=== PATIENT | male | born 1960 | race Caucasian/White ===

== ENCOUNTER 2017-12-15 17:09 | Observation (INO) | payer MEDICAID, SELFPAY ==
[2017-12-15] VITALS (8 sets, daily range): BP systolic 132–151; BP diastolic 80–100; PULSE 88–105; RESP 20–25; TEMP 37–38.1; O2SAT 93–95; BMI 34.4; BMI 34.5; BMI 34.6
--- NOTE | 2017-12-15 17:50 | EKG12_ITS ---
Test Reason : SOB Blood Pressure : / mmHG Vent. Rate : 098 BPM Atrial Rate : 098 BPM P-R Int : 164 ms QRS Dur : 090 ms QT Int : 330 ms P-R-T Axes : 030 009 021 degrees QTc Int : 421 ms Normal sinus rhythm Inferior infarct , age undetermined, cannot be excluded Abnormal ECG Confirmed by LITA BROOKS, HUMBLE ([id number]), newspaper or periodical editor ANITA ABREU ([id number]) on 12/17/2017 10:15:53 AM Referred By: ERIN/ABENA Confirmed By:HUMBLE LONDON MD
--- NOTE | 2017-12-15 17:50 | CT_ITS ---
STUDY: CTA CHEST REASON FOR EXAM: Male, 57 years old. Chest pain RADIATION DOSAGE (If Supplied By Facility): CTDIvol = ( 16.43 ) mGy, DLP = ( 663.14 ) mGycm TECHNIQUE: The examination was performed with the intravenous administration of 100ML ml of Isovue 370 contrast material. Post-processing of the angiographic images was performed, with multiplanar reformation and 3D reconstruction. Individualized dose optimization techniques were used for this CT. COMPARISON: January 20, 2015 FINDINGS: There is grossly stable bibasilar atelectasis and/or scarring. Normal enhancement of the main pulmonary artery and right and left pulmonary arteries. There are filling defects within subsegmental pulmonary arteries within the right lower lobe consistent with underlying emboli. Normal thoracic aorta and visualized great vessels. There is no demonstrated aortic dissection. There are calcifications of the coronary arteries. Normal mediastinum. Normal hilar regions. Normal visualized trachea and bronchi. Normal chest wall structures. There are degenerative changes of thoracic spine. There are stable scattered low-attenuation foci within the liver that likely reflect underlying hemangiomas or cysts. CT/CTA Chest W/WO Contrast IMPRESSION: Pulmonary emboli within subsegmental pulmonary arteries within the right lower lobe. Atherosclerosis. N.B. : The above information has been verbally conveyed by Tamara Swanson MD to Jeanna Pichardo, Covering Physician, on 12/15/2017 20:27:29 (ET). Electronically Signed: Tamara Swanson MD at 20:27 EDT Tel , Service support ,
--- NOTE | 2017-12-15 18:05 | RAD_ITS ---
STUDY: X-RAY CHEST REASON FOR EXAM: Male, 57 years old. Shortness of breath TECHNIQUE: Single frontal view of the chest. COMPARISON: January 20, 2015 FINDINGS: There are low lung volumes. There is no new focal consolidation. Normal size heart. Normal mediastinum and marcelina. Normal visualized pulmonary arteries. Normal visualized aortic arch and descending thoracic aorta. There are diffuse degenerative changes of the visualized thoracic spine. Normal visualized ribs, clavicles, and shoulders. There is no demonstrated abnormality of the visualized soft tissue structures of the upper abdomen. RAD/Chest 1 View (Portable) IMPRESSION: No acute cardiopulmonary process. Electronically Signed: Tamara Swanson MD at 19:13 EDT Tel , Service support ,
[2017-12-15] MEDS: Ketorolac 30 MG/ML Syringe IV (18:31)
[2017-12-15] MEDS: 0.9% Normal Saline 1,000 ML 150 ML IV (18:31)
[2017-12-15] MEDS: Ondansetron 4 MG/2 ML Vial IV (18:31)
[2017-12-15 18:56] LABS: Absolute Lymphocyte Count 1.39 X10^3/ul (0.83-4.51); Absolute Neutrophil Count 6.3 X10^3/uL (2.0-7.7); Basophil# 0.05 X10^3/uL; Basophil% 0.6 % (0-1); Eosinophil# 0.15 X10^3/uL; Eosinophils% 1.7 % (0-5); Hematocrit 48.2 % (40-54); Hemoglobin 16.4 g/dl (13.0-16.5); Lymphocyte # 1.39 X10^3/ul (4.0); Lymphocyte % 15.3 % (19-41); Mean Corpuscular Hgb 29.9 pg (27.0-32.0); Mean Platelet Vol. 10.1 fl (6.2-12.0); Monocyte# 1.14 X10^3/uL; Monocyte% 12.6 % (0-10); Neutrophil % 69.4 % (47-70); POSITIVE COUNT NO; POSITIVE DIFFERENTIAL NO; POSITIVE MORPHOLOGY NO; Platelet Count 319 K/mm3 (150-450); RBC Distribution Width SD 41.9 fl (35.1-43.9); Red Blood Count 5.48 M/mm3 (4.6-6.2); White Blood Count 9.1 K/mm3 (4.4-11.0)
[2017-12-15 19:17] LABS: Anion Gap 6 (5-15); BUN 12 mg/dL (7-18); BUN/Creat Ratio 10.7 RATIO (10-20); Calcium,Total 9.2 mg/dL (8.5-10.1); Chloride 103 mmol/L (98-107); Creatinine, Serum 1.12 mg/dL (0.70-1.30); EST Glomerular Filtration Rate 72 mL/min (>60); Est Glom Filt Rate - Afr Amer 87 mL/min (>60); Estimated Creatinine Clearance 68.85 ml/min; Glucose 86 mg/dL (74-106); Potassium 3.9 mmol/L (3.5-5.1); Sodium Level 137 mmol/L (136-145)
[2017-12-15 19:21] LABS: Lactic Acid 1.3 mmol/L (0.4-2.0)
[2017-12-15] MEDS: Enoxaparin 100 MG/ML Syringe SC (20:40)
--- NOTE | 2017-12-15 20:45 | ED.VISSUMM ---
- ER Visit Summary Date of Service: 12/15/17 Chief Complaint: Shortness of breath History of Present Illness: The patient is a 57 M with body aches for the past couple of days. Today's had fever and shortness of breath. He has a history of DVT and PE. He is no longer on anticoagulants. He does report a recent car ride to [place] and was in a car for 14 hours on 2 consecutive days. Patient has very minimal cough. Physical Examination: Blood pressure is 151/100, temperature 99.8, heart rate 101, respiratory rate 23, pulse ox 94% on room air. Patient sitting upright in bed. He appears ill but not toxic. Heart is regular rate and rhythm. Lung sounds are slightly diminished. No wheezing or rhonchi are noted. Abdomen is soft and nontender. Lower external examination was no significant calf tenderness or edema. Test Results: EKG is sinus at 98 with no sign of acute ischemia. Portable chest x-ray shows no acute process. CBC and chemistry studies are normal. Troponin is less than 0.015. Lactate is normal. Blood cultures were drawn. CTA of the chest reveals tiny PEs in the subsegmental vessels of the right lower lobe. Emergency Department Course and Treatment: Patient is given IV fluids, Toradol, and Zofran. On repeat evaluation he is currently on 3 L nasal cannula and satting in the mid 90s. Nursing staff advises his sats were in the low 90s. Patient is given a dose of Lovenox. He will be admitted for further treatment. Treatment Plan: [] Disposition: Admit Impression: Pulmonary emboli This note was generated with [facility] [employer] dictation software. It may contain incorrect words, spelling, and punctuation that were not noted in review of the chart prior to signing ED Disposition - Plan for ED Patient: Chief Complaint: Shortness of Breath Referrals: Danilo Oviedo DO [Primary Care Provider] -
--- NOTE | 2017-12-15 21:03 | PCM.HP.STD ---
Problem List (1) Pulmonary emboli Status: Chronic History of Present Illness Date of Admission: 12/15/17 Chief Complaint: Shortness of breath The patient is a 57 year old M who presents with shortness of breath. Patient was also presented with myalgias as well fevers. Patient recently went on a road trip to [place] came back on Friday. Patient presented to the emergency room and was found to have had pulmonary emboli within subs segmental pulmonary arteries within the right lower lobe. Patient received a one-time dose of Lovenox. Patient was not hypoxic but did feel better when lighted. Patient had a history of pulmonary embolism in the nose patient feels it was related with him being immobilized in the hospital. [] Past Medical History Past Medical History (Chronic Problems): Chronic Problems Postviral (asthenic) syndrome (Chronic) Pulmonary emboli (Chronic) Allergies acetaminophen [From Percocet] Allergy (Verified 12/15/17 17:12) Other PASS OUT oxycodone [From Percocet] Allergy (Verified 12/15/17 17:12) Other PASS OUT Iodinated Contrast- Oral and IV Dye [CT] Adverse Reaction (Verified 12/15/17 17:12) Nausea Home Medications: Ambulatory Orders Medication Instructions Recorded No Known/Unobtainable [No Known 01/09/16 Home Medications] Surgical History: appendectomy Psychiatric History: No pertinent psych hx Smoking Status: Never smoker Tobacco Use: Non-smoker Alcohol: None Drugs: None - *Family History Maternal History Items: - - mother side diabetes Paternal History Items: - - father side had heart problems Sibling History Items: No pertinent history Review of Systems Constitutional: Reports: Chills, Fever. Denies: Anorexia Eyes: Denies: Blurred vision, Double vision HEENT: Denies: Head Aches, Sinus Congestion, Sinus Drainage Cardiovascular: Denies: Chest Pain, Edema Respiratory: Reports: Shortness of Breath. Denies: Cough Gastrointestinal: Reports: Nausea. Denies: Abdominal Pain, Vomiting Genitourinary: Denies: Dysuria Musculoskeletal: Denies: Joint Pain, Joint Tenderness Skin: Denies: Rash, Wounds Neurological: Denies: Numbness, Tingling, Focal weakness Psychiatric: Denies: Anxiety, Depression Hematologic/ Lymphatic: Reports: Hx of blood clot. Denies: Easy Bruising, Easy Bleeding Comment: All review of systems are negative except as mentioned in the history of present illness and the other review of systems. VTE Information - Inpt Only VTE Present on Admission: Yes - Physical Exam General: Alert, Cooperative, No apparent distress, - - Raspy low voice HEENT: Atraumatic, Normocephalic Oral: Moist Mucosa, No Gingival or Mucosal Lesions/ Ulcerations Neck: No Nodes, Thyroid Normal Size and Texture Lungs: Clear to auscultation, Normal air movement, No rhonchi, No wheeze Cardiovascular: Regular rate, Regular Rhythm, Normal S1, Normal S2, No murmurs Abdomen: Bowel Sounds Present, Soft, Non Tender, Non-Distended, No Hepato-splenomegaly, Passing Flatus, Bowel Sounds Not Present Extremities: No edema, No Calf Tenderness Skin: No rashes, No breakdown Musculoskeletal: No Tenderness to Palpation of Joints or Extremities, No Muscle Wasting Neurological: Neuro grossly intact, Muscle tone normal, Coordination normal Psych/Mental Status: Normal Affect, Appropriate Vital Signs Temp Pulse Resp BP Pulse Ox 37.7 C H 101 H 25 H 145/90 H 95 12/15/17 17:22 12/15/17 20:36 12/15/17 20:36 12/15/17 20:36 12/15/17 20:36 Oxygen Delivery Method Room Air Weight: 99.9 kg Body Mass Index (BMI) 34.4 Laboratory Tests Past 24 Hrs 12/15/17 12/15/17 12/15/17 18:30 18:30 18:30 WBC 9.1 RBC 5.48 Hgb 16.4 Hct 48.2 MCV 88.0 MCH 29.9 MCHC 34.0 RDW 13.0 RDW Differential 41.9 Plt Count 319 MPV 10.1 Immature Gran % (Auto) 0.400 Neut % (Auto) 69.4 Lymph % (Auto) 15.3 L [place] % (Auto) 12.6 H Eos % (Auto) 1.7 Baso % (Auto) 0.6 Absolute Neuts (auto) 6.3 Absolute Lymphs (auto) 1.39 Total Counted Not Reportable Sodium 137 Potassium 3.9 Chloride 103 Carbon Dioxide 28.0 Anion Gap 6 BUN 12 Creatinine 1.12 Estim Creat Clear Calc 68.85 Est GFR (MDRD) Af Amer 87 Est GFR (MDRD) Non-Af 72 BUN/Creatinine Ratio 10.7 Glucose 86 Lactic Acid 1.3 Calcium 9.2 Troponin I < 0.015 EKG showed normal sinus rhythm with S1 and Q3. Clinical Impression(s) from Imaging Studies Chest CTA 12/15/17 17:50 IMPRESSION: Pulmonary emboli within subsegmental pulmonary arteries within the right lower lobe. Atherosclerosis. N.B. : The above information has been verbally conveyed by Tamara Swanson MD to Jeanna Pichardo, Covering Physician, on 12/15/2017 20:27:29 (ET). Electronically Signed: Tamara Swanson MD at 20:27 EDT Tel , Service support , Chest X-Ray 12/15/17 18:05 IMPRESSION: No acute cardiopulmonary process. Electronically Signed: Tamara Swanson MD at 19:13 EDT Tel , Service support , Assessment/Plan All Active Problems Influenza (Resolved) Measles (Resolved) 1. Acute pulmonary embolism This is likely a provoked clot related with patient's recent long travel to [place] Unclear if his previous episode of pulmonary embolism was provoked or not Patient is currently hemodynamically stable Patient will be brought in under observation so that we can check an amatory pulse ox to see if he may qualify for oxygen and also just to ensure that he will have coverage for his Xarelto. We will be unable to do those at 9 PM at night As patient is hemodynamically stable I do not feel is necessary to do an echocardiogram to evaluate for right heart strain I will start the Xarelto on the seventh as patient already received a therapeutic dose of Lovenox tonight. I recommend the patient follow-up with a guide alpine within the next several months to determine if the patient's treatment can only be 6 months or if it may require being lifelong or if patient were to require a hypercoagulable workup that case patient would require a two-week holiday from his anticoagulation before the test to be drawn. Case discussed with the patient's family at bedside. Code Visit Inpatient E&M: 19036 Init Hosp L3
--- NOTE | 2017-12-15 21:09 | HP.PCM_ITS ---
Problem List (1) Pulmonary emboli Status: Chronic History of Present Illness Date of Admission: 12/15/17 Chief Complaint: Shortness of breath The patient is a 57 year old M who presents with shortness of breath. Patient was also presented with myalgias as well fevers. Patient recently went on a road trip to [place] came back on Friday. Patient presented to the emergency room and was found to have had pulmonary emboli within subs segmental pulmonary arteries within the right lower lobe. Patient received a one-time dose of Lovenox. Patient was not hypoxic but did feel better when lighted. Patient had a history of pulmonary embolism in the nose patient feels it was related with him being immobilized in the hospital. [] Past Medical History Past Medical History (Chronic Problems): Chronic Problems Postviral (asthenic) syndrome (Chronic) Pulmonary emboli (Chronic) Allergies acetaminophen [From Percocet] Allergy (Verified 12/15/17 17:12) Other PASS OUT oxycodone [From Percocet] Allergy (Verified 12/15/17 17:12) Other PASS OUT Iodinated Contrast- Oral and IV Dye [CT] Adverse Reaction (Verified 12/15/17 17: 12) Nausea Home Medications: Ambulatory Orders Medication Instructions Recorded No Known/Unobtainable [No Known 01/09/16 Home Medications] Surgical History: appendectomy Psychiatric History: No pertinent psych hx Smoking Status: Never smoker Tobacco Use: Non-smoker Alcohol: None Drugs: None - *Family History Maternal History Items: - - mother side diabetes Paternal History Items: - - father side had heart problems Sibling History Items: No pertinent history Review of Systems Constitutional: Reports: Chills, Fever. Denies: Anorexia Eyes: Denies: Blurred vision, Double vision HEENT: Denies: Head Aches, Sinus Congestion, Sinus Drainage Cardiovascular: Denies: Chest Pain, Edema Respiratory: Reports: Shortness of Breath. Denies: Cough Gastrointestinal: Reports: Nausea. Denies: Abdominal Pain, Vomiting Genitourinary: Denies: Dysuria Musculoskeletal: Denies: Joint Pain, Joint Tenderness Skin: Denies: Rash, Wounds Neurological: Denies: Numbness, Tingling, Focal weakness Psychiatric: Denies: Anxiety, Depression Hematologic/ Lymphatic: Reports: Hx of blood clot. Denies: Easy Bruising, Easy Bleeding Comment: All review of systems are negative except as mentioned in the history of present illness and the other review of systems. VTE Information - Inpt Only VTE Present on Admission: Yes - Physical Exam General: Alert, Cooperative, No apparent distress, - - Raspy low voice HEENT: Atraumatic, Normocephalic Oral: Moist Mucosa, No Gingival or Mucosal Lesions/ Ulcerations Neck: No Nodes, Thyroid Normal Size and Texture Lungs: Clear to auscultation, Normal air movement, No rhonchi, No wheeze Cardiovascular: Regular rate, Regular Rhythm, Normal S1, Normal S2, No murmurs Abdomen: Bowel Sounds Present, Soft, Non Tender, Non-Distended, No Hepato- splenomegaly, Passing Flatus, Bowel Sounds Not Present Extremities: No edema, No Calf Tenderness Skin: No rashes, No breakdown Musculoskeletal: No Tenderness to Palpation of Joints or Extremities, No Muscle Wasting Neurological: Neuro grossly intact, Muscle tone normal, Coordination normal Psych/Mental Status: Normal Affect, Appropriate Vital Signs Temp Pulse Resp BP Pulse Ox 37.7 C H 101 H 25 H 145/90 H 95 12/15/17 17:22 12/15/17 20:36 12/15/17 20:36 12/15/17 20:36 12/15/17 20:36 Oxygen Delivery Method Room Air Weight: 99.9 kg Body Mass Index (BMI) 34.4 Laboratory Tests Past 24 Hrs 12/15/17 12/15/17 12/15/17 18:30 18:30 18:30 WBC 9.1 RBC 5.48 Hgb 16.4 Hct 48.2 MCV 88.0 MCH 29.9 MCHC 34.0 RDW 13.0 RDW Differential 41.9 Plt Count 319 MPV 10.1 Immature Gran % (Auto) 0.400 Neut % (Auto) 69.4 Lymph % (Auto) 15.3 L [place] % (Auto) 12.6 H Eos % (Auto) 1.7 Baso % (Auto) 0.6 Absolute Neuts (auto) 6.3 Absolute Lymphs (auto) 1.39 Total Counted Not Reportable Sodium 137 Potassium 3.9 Chloride 103 Carbon Dioxide 28.0 Anion Gap 6 BUN 12 Creatinine 1.12 Estim Creat Clear Calc 68.85 Est GFR (MDRD) Af Amer 87 Est GFR (MDRD) Non-Af 72 BUN/Creatinine Ratio 10.7 Glucose 86 Lactic Acid 1.3 Calcium 9.2 Troponin I < 0.015 EKG showed normal sinus rhythm with S1 and Q3. Clinical Impression(s) from Imaging Studies Chest CTA 12/15/17 17:50 IMPRESSION: Pulmonary emboli within subsegmental pulmonary arteries within the right lower lobe. Atherosclerosis. N.B. : The above information has been verbally conveyed by Tamara Swanson MD to Jeanna Pichardo, Covering Physician, on 12/15/2017 20:27:29 (ET). Electronically Signed: Tamara Swanson MD at 20:27 EDT Tel , Service support , Chest X-Ray 12/15/17 18:05 IMPRESSION: No acute cardiopulmonary process. Electronically Signed: Tamara Swanson MD at 19:13 EDT Tel , Service support , Assessment/Plan All Active Problems Influenza (Resolved) Measles (Resolved) 1. Acute pulmonary embolism * This is likely a provoked clot related with patient's recent long travel to [place] * Unclear if his previous episode of pulmonary embolism was provoked or not * Patient is currently hemodynamically stable * Patient will be brought in under observation so that we can check an amatory pulse ox to see if he may qualify for oxygen and also just to ensure that he will have coverage for his Xarelto. We will be unable to do those at 9 PM at night * As patient is hemodynamically stable I do not feel is necessary to do an echocardiogram to evaluate for right heart strain * I will start the Xarelto on the seventh as patient already received a therapeutic dose of Lovenox tonight. * I recommend the patient follow-up with a rn digestive within the next several months to determine if the patient's treatment can only be 6 months or if it may require being lifelong or if patient were to require a hypercoagulable workup that case patient would require a two-week holiday from his anticoagulation before the test to be drawn. Case discussed with the patient's family at bedside. Code Visit Inpatient E&M: 26013 Init Hosp L3
--- NOTE | 2017-12-15 21:13 | NURSING ---
Called [facility] charge nurseklaudia to send patient to the floor.
[2017-12-16] VITALS (15 sets, daily range): BP systolic 110–133; BP diastolic 68–87; PULSE 64–87; RESP 16–19; TEMP 36.5–37.2; O2SAT 80–96
[2017-12-16] MEDS: Ibuprofen 400 MG Tablet PO ×3 (05:26→21:13)
[2017-12-16] MEDS: Oxymetazoline 0.05% 1 SPRAY SPRAY.BTL 2 SPRAY NASAL ×2 (05:27→16:41)
--- NOTE | 2017-12-16 08:59 | VDLE_ITS ---
Reason For Study: PE RIGHT LEFT GSV is normal. GSV is normal. CFV is compressible, spontaneous, phasic, CFV is compressible, spontaneous, phasic, competent and demonstrates normal competent, and demonstrates normal augmentation. augmentation. FV is compressible, spontaneous, phasic, FV is compressible, spontaneous, phasic, competent and demonstrates normal competent and demonstrates normal augmentation. augmentation. POP V is compressible, spontaneous, phasic, POP V is compressible, spontaneous, phasic, competent and demonstrates normal competent and demonstrates normal augmentation. augmentation. T/P Trunk is compressible. T/P Trunk is compressible. PTV is compressible. PTV is compressible. RT PerV is compressible. LT PerV is compressible. Procedure Exam performed portable in patient room. A preliminary report was called and/or faxed to [facility] nurse. Interpretation Summary No evidence for acute deep venous thrombosis bilateral lower extremities with patent and compressible bilateral great saphenous veins. Ordering Physician: Maryanne Valera Referring Physician: Danilo Kerr Performed By: Michelle Loya RVT
[2017-12-16] MEDS: Rivaroxaban 15 MG Tablet PO ×2 (09:01→16:41)
[2017-12-16] MEDS: BENZOCAINE/MENTHOL 1 LOZENGE MUCOUS MEM ×2 (10:27→14:10)
[2017-12-16] MEDS: Thyroid 15 MG Tablet 30 MG PO (11:06)
--- NOTE | 2017-12-16 11:30 | CASEMGMT ---
Per Dr. Valera, pt to be discharged today. Per Socorro BOOTHE, pt qualifies for home oxygen at this time. Pt states would like [employer] at this time for home oxygen. Pt also advised that he is to be sent home on Xarelto and per pt/, he has been on Xarelto before with no co-pay. Pt/ would like meds sent to [facility] retail pharmacy at this time. Dr. Valera to sign order for home oxygen and she states concerns now that pt qualified for oxygen and she states she may keep him another night. Brennen BOOTHE CM
--- NOTE | 2017-12-16 11:42 | ECHOD_ITS ---
Reason For Study: EMBOLI Procedure This was a 2D Doppler, Color Flow transthoracic echocardiogram. The study was technically difficult. Contrast injection was performed. Exam performed portable in patient room. Left Ventricle Normal LV size. Sigmoid septum. Mild segmental systolic dysfunction (see wall motion). The estimated ejection fraction is 50 %. Transmitral doppler flow suggestive of impaired relaxation of left ventricle. Mid-Anterior : Hypokinetic. Mid-Lateral : Hypokinetic. Mid-Inferior: Hypokinetic. Mid-inferoseptal : Hypokinetic. Mid-anteroseptal : Hypokinetic. [place] : Hypokinetic. Right Ventricle Mildly dilated right ventricle. Normal systolic function. Atria Normal left atrium. Normal right atrium. No doppler evidence for ASD. Mitral Valve There is no mitral annular calcification. Normal mitral valve. Trivial mitral valve insufficiency. Tricuspid Valve Normal tricuspid valve. Trivial tricuspid valve insufficiency. Unable to estimate RV systolic pressure/pulmonary artery pressure due to technically difficult study. Aortic Valve Trisinus/trileaflet aortic valve. Normal aortic valve. Trivial aortic valve insufficiency. Pulmonic Valve The pulmonic valve is not well visualized. Trivial pulmonic valve insufficiency. Great Vessels Normal sized aortic root. Pericardium/Pleural No pericardial effusion. Medication Diluted definity 4ml given slow IV push to enhance endocardial definition. MMode/2D Measurements & Calculations LVIDd: 4.3 cm IVSd: 0.92 cm Ao root diam: 3.6 cm LVIDs: 2.8 cm LVPWd: 1.0 cm RVDd: 4.2 cm FS: 35.3 % LAV(MOD-bp): 47.3 ml LA A4 area: 19.1 cm2 RA A4 area: 17.6 cm2 LAV(MOD-bp) Indexed: 22.5 ml/m2 LAV(MOD-sp2): 36.6 ml LAV(MOD-sp4): 49.0 ml Time Measurements MV dec time: 0.27 sec Doppler Measurements & Calculations MV E max davin: 58.3 cm/sec Lat Peak E' Davin: 9.6 cm/sec Med Peak E' Davin: 6.5 cm/sec MV A max davin: 70.6 cm/sec E/E' lat: 6.1 E/E' med: 9.0 MV E/A: 0.83 Ao V2 max: 112.9 cm/sec LV V1 max: 85.0 cm/sec PA V2 max: 96.1 cm/sec Ao max P.1 mmHg LV V1 max P.9 mmHg Interpretation Summary The study was technically difficult. Contrast injection was performed. Mild segmental systolic dysfunction (see wall motion). The estimated ejection fraction is 50 %. Sigmoid septum. Mildly dilated right ventricle. Trivial mitral valve insufficiency. Trivial tricuspid valve insufficiency. Trivial aortic valve insufficiency. Trivial pulmonic valve insufficiency. Unable to estimate RV systolic pressure/pulmonary artery pressure due to technically difficult study. Transmitral doppler flow suggestive of impaired relaxation of left ventricle Ordering Physician: Maryanne Valera Referring Physician: PRINCE SORIANO DO Performed By: Mary Perea, RATNACS, RVT
--- NOTE | 2017-12-16 11:43 | PCM.PN.HOSP ---
Subjective: Patient seen and examined. He was admitted with a complaint of shortness of breath after he had a [address] to and from [place] recently. He was found to have segmental PE in the right lobe. Duplex of the lower extremities was negative. Patient has no complaints and says shortness of breath is better. He denies any fever or chills, any chest pain, any abdominal pain, any diarrhea vomiting. Review of systems was otherwise negative. Of note, patient had a PE back in 2014 and was treated with 3 months of Xarelto. He says his father has a history of PEs and has an enzyme deficiency, he is not sure exactly which. Father is on chronic anticoagulation. Patient has not had any age-appropriate screening for malignancy such as colonoscopy. He also does have a history of smoking. He denies any weight loss. Labs and vitals reviewed. Vitals/I&O's: Vital Signs Temp Pulse Resp BP Pulse Ox 97.7 F L 64 18 126/85 H 96 12/16/17 11:18 12/16/17 11:18 12/16/17 11:18 12/16/17 11:18 12/16/17 11:18 Oxygen Flow Rate (L/min) [ 2 AMBULATION with Oxygen] Oxygen Flow Rate (L/min) 2 Oxygen Delivery Method Nasal Cannula Weight: 220 lb 10.923 oz Body Mass Index (BMI) 34.5 Intake and Output for Last 24 Hours 12/14/17 12/15/17 12/16/17 23:59 23:59 23:59 Intake Total 110 / 110 190 / 190 Balance 110 / 110 190 / 190 General: Alert, Oriented x3, Cooperative, No apparent distress HEENT: Atraumatic, PERRLA, EOMI, Normocephalic Oral: Moist Mucosa Neck: Supple, No JVD, Negative Carotid Bruits Lungs: Clear to auscultation, Normal air movement, No rhonchi, No wheeze, No rales Cardiovascular: Regular rate, Regular Rhythm, Normal S1, Normal S2, No murmurs Abdomen: Bowel Sounds Present, Soft, Non Tender, Non-Distended, No Hepato-splenomegaly Extremities: No clubbing, No cyanosis, No edema, Capillary Refill Less than 3 Seconds Skin: No rashes, No breakdown Musculoskeletal: No Tenderness to Palpation of Joints or Extremities Lymphatic: No Cervical, Supraclavicular, or Inguinal Adenopathy Neurological: Cranial nerves II-XII grossly intact, Motor Exam 5/5 strength throughout Psych/Mental Status: Normal Affect, Appropriate, Alert and oriented to time, place, person, mood and affect Laboratory Tests 12/15/17 12/15/17 12/15/17 18:30 18:30 18:30 WBC 9.1 RBC 5.48 Hgb 16.4 Hct 48.2 MCV 88.0 MCH 29.9 MCHC 34.0 RDW 13.0 RDW Differential 41.9 Plt Count 319 MPV 10.1 Immature Gran % (Auto) 0.400 Neut % (Auto) 69.4 Lymph % (Auto) 15.3 L [place] % (Auto) 12.6 H Eos % (Auto) 1.7 Baso % (Auto) 0.6 Absolute Neuts (auto) 6.3 Absolute Lymphs (auto) 1.39 Total Counted Not Reportable Sodium 137 Potassium 3.9 Chloride 103 Carbon Dioxide 28.0 Anion Gap 6 BUN 12 Creatinine 1.12 Estim Creat Clear Calc 68.85 Est GFR (MDRD) Af Amer 87 Est GFR (MDRD) Non-Af 72 BUN/Creatinine Ratio 10.7 Glucose 86 Lactic Acid 1.3 Calcium 9.2 Troponin I < 0.015 Diagnostic Data Chest CTA 12/15/17 17:50 IMPRESSION: Pulmonary emboli within subsegmental pulmonary arteries within the right lower lobe. Atherosclerosis. N.B. : The above information has been verbally conveyed by Tamara Swanson MD to Jeanna Pichardo, Covering Physician, on 12/15/2017 20:27:29 (ET). Electronically Signed: Tamara Swanson MD at 20:27 EDT Tel , Service support , Chest X-Ray 12/15/17 18:05 IMPRESSION: No acute cardiopulmonary process. Electronically Signed: Tamara Swanson MD at 19:13 EDT Tel , Service support , Current Medications Ibuprofen (Motrin) 400 mg PO Q6H PRN PRN PRN Reason: HEADACHE Last Admin: 12/16/17 05:26 Dose: 400 mg Magnesium Hydroxide (Milk Of Magnesia) 30 ml PO DAILY PRN PRN Reason: Constipation Ondansetron HCl (Zofran) 4 mg IV Q8H PRN PRN PRN Reason: NAUSEA Oxycodone HCl (Oxyir) 5 - 10 mg PO Q4H PRN PRN PRN Reason: MOD-SEVERE PAIN (4-10/10) Oxymetazoline HCl (Afrin (Bkc)) 2 spray NASAL PRN PRN PRN Reason: NASAL CONGESTION Last Admin: 12/16/17 05:27 Dose: 2 spray Rivaroxaban (Xarelto) 15 mg PO BIDCM [facility] Last Admin: 12/16/17 09:01 Dose: 15 mg Sodium Chloride () 5 - 30 ml IV UD PRN PRN Reason: SALINE FLUSH Throat Lozenges (Cepacol Sore Throat Lozenge) 1 lozenge MUCOUS MEM Q2H PRN PRN PRN Reason: SORE THROAT Last Admin: 12/16/17 10:27 Dose: 1 lozenge Thyroid ([place] Thyroid) 30 mg PO DAILY@0600 [facility] Last Admin: 12/16/17 11:06 Dose: 30 mg Medical Necessity - Tobacco Use Smoking Status: Never smoker Tobacco Use: Non-smoker Assessment/Plan All Active Problems Influenza (Resolved) Measles (Resolved) 1. Acute Pulmonary embolism Has a history of a peripheral PE that was in about 2014 was thought to be because he had been in bed for a long time. recently had a long drive to [place]. Drove total of 14 hours Found to have segmental right-sided emboli. Was breathing in the 20s when he presented. Duplex of lower extremities was negative. Received a dose of Lovenox and was started on Xarelto 50 mg twice daily. Patient has not had any age-appropriate screening such as colonoscopy. He does have an history of smoking and does have any unexplained weight loss. However patient desaturated to 88% today with ambulation on room air and therefore qualifies for oxygen. I will get an echo to evaluate cardiac function as I do not understand why he would have hypoxia with the small segmental emboli especially as his only right-sided. I stressed the opinion of pulmonology informally. Patient will benefit from outpatient age-appropriate screening workup. I will hold off on sending screening for enzyme deficiency as patient already received a dose of Lovenox and in the acute state of an embolism, results will not be very valid. Patient will likely need lifelong anticoagulation in light of 2 PE's and family history of coagulopathy. 2. Hypothyroidism: on PO armour thyroid 30mg daily 3. DVT prophylaxis: on xarelto Code status: Full code This note was generated with [employer] dictation software. It may contain incorrect words, spelling, and punctuation that were not noted in checking the note before signing. Code Visit OBSV E&M: 45791 Subsequent observation care L3
--- NOTE | 2017-12-16 11:51 | PN_ITS ---
Subjective: Patient seen and examined. He was admitted with a complaint of shortness of breath after he had a [address] to and from [place] recently. He was found to have segmental PE in the right lobe. Duplex of the lower extremities was negative. Patient has no complaints and says shortness of breath is better. He denies any fever or chills, any chest pain, any abdominal pain, any diarrhea vomiting. Review of systems was otherwise negative. Of note, patient had a PE back in 2014 and was treated with 3 months of Xarelto. He says his father has a history of PEs and has an enzyme deficiency, he is not sure exactly which. Father is on chronic anticoagulation. Patient has not had any age-appropriate screening for malignancy such as colonoscopy. He also does have a history of smoking. He denies any weight loss. Labs and vitals reviewed. Vitals/I&O's: Vital Signs Temp Pulse Resp BP Pulse Ox 97.7 F L 64 18 126/85 H 96 12/16/17 11:18 12/16/17 11:18 12/16/17 11:18 12/16/17 11:18 12/16/17 11:18 Oxygen Flow Rate (L/min) [ 2 AMBULATION with Oxygen] Oxygen Flow Rate (L/min) 2 Oxygen Delivery Method Nasal Cannula Weight: 220 lb 10.923 oz Body Mass Index (BMI) 34.5 Intake and Output for Last 24 Hours 12/14/17 12/15/17 12/16/17 23:59 23:59 23:59 Intake Total 110 / 110 190 / 190 Balance 110 / 110 190 / 190 General: Alert, Oriented x3, Cooperative, No apparent distress HEENT: Atraumatic, PERRLA, EOMI, Normocephalic Oral: Moist Mucosa Neck: Supple, No JVD, Negative Carotid Bruits Lungs: Clear to auscultation, Normal air movement, No rhonchi, No wheeze, No rales Cardiovascular: Regular rate, Regular Rhythm, Normal S1, Normal S2, No murmurs Abdomen: Bowel Sounds Present, Soft, Non Tender, Non-Distended, No Hepato- splenomegaly Extremities: No clubbing, No cyanosis, No edema, Capillary Refill Less than 3 Seconds Skin: No rashes, No breakdown Musculoskeletal: No Tenderness to Palpation of Joints or Extremities Lymphatic: No Cervical, Supraclavicular, or Inguinal Adenopathy Neurological: Cranial nerves II-XII grossly intact, Motor Exam 5/5 strength throughout Psych/Mental Status: Normal Affect, Appropriate, Alert and oriented to time, place, person, mood and affect Laboratory Tests 12/15/17 12/15/17 12/15/17 18:30 18:30 18:30 WBC 9.1 RBC 5.48 Hgb 16.4 Hct 48.2 MCV 88.0 MCH 29.9 MCHC 34.0 RDW 13.0 RDW Differential 41.9 Plt Count 319 MPV 10.1 Immature Gran % (Auto) 0.400 Neut % (Auto) 69.4 Lymph % (Auto) 15.3 L [place] % (Auto) 12.6 H Eos % (Auto) 1.7 Baso % (Auto) 0.6 Absolute Neuts (auto) 6.3 Absolute Lymphs (auto) 1.39 Total Counted Not Reportable Sodium 137 Potassium 3.9 Chloride 103 Carbon Dioxide 28.0 Anion Gap 6 BUN 12 Creatinine 1.12 Estim Creat Clear Calc 68.85 Est GFR (MDRD) Af Amer 87 Est GFR (MDRD) Non-Af 72 BUN/Creatinine Ratio 10.7 Glucose 86 Lactic Acid 1.3 Calcium 9.2 Troponin I < 0.015 Diagnostic Data Chest CTA 12/15/17 17:50 IMPRESSION: Pulmonary emboli within subsegmental pulmonary arteries within the right lower lobe. Atherosclerosis. N.B. : The above information has been verbally conveyed by Tamara Swanson MD to Jeanna Pichardo, Covering Physician, on 12/15/2017 20:27:29 (ET). Electronically Signed: Tamara Swanson MD at 20:27 EDT Tel , Service support , Chest X-Ray 12/15/17 18:05 IMPRESSION: No acute cardiopulmonary process. Electronically Signed: Tamara Swanson MD at 19:13 EDT Tel , Service support , Current Medications Ibuprofen (Motrin) 400 mg PO Q6H PRN PRN PRN Reason: HEADACHE Last Admin: 12/16/17 05:26 Dose: 400 mg Magnesium Hydroxide (Milk Of Magnesia) 30 ml PO DAILY PRN PRN Reason: Constipation Ondansetron HCl (Zofran) 4 mg IV Q8H PRN PRN PRN Reason: NAUSEA Oxycodone HCl (Oxyir) 5 - 10 mg PO Q4H PRN PRN PRN Reason: MOD-SEVERE PAIN (4-10/10) Oxymetazoline HCl (Afrin (Bkc)) 2 spray NASAL PRN PRN PRN Reason: NASAL CONGESTION Last Admin: 12/16/17 05:27 Dose: 2 spray Rivaroxaban (Xarelto) 15 mg PO BIDCM [facility] Last Admin: 12/16/17 09:01 Dose: 15 mg Sodium Chloride () 5 - 30 ml IV UD PRN PRN Reason: SALINE FLUSH Throat Lozenges (Cepacol Sore Throat Lozenge) 1 lozenge MUCOUS MEM Q2H PRN PRN PRN Reason: SORE THROAT Last Admin: 12/16/17 10:27 Dose: 1 lozenge Thyroid ([place] Thyroid) 30 mg PO DAILY@0600 [facility] Last Admin: 12/16/17 11:06 Dose: 30 mg Medical Necessity - Tobacco Use Smoking Status: Never smoker Tobacco Use: Non-smoker Assessment/Plan All Active Problems Influenza (Resolved) Measles (Resolved) 1. Acute Pulmonary embolism * Has a history of a peripheral PE that was in about 2014 was thought to be because he had been in bed for a long time. * recently had a long drive to [place]. Drove total of 14 hours * Found to have segmental right-sided emboli. Was breathing in the 20s when he presented. * Duplex of lower extremities was negative. * Received a dose of Lovenox and was started on Xarelto 50 mg twice daily. * Patient has not had any age-appropriate screening such as colonoscopy. He does have an history of smoking and does have any unexplained weight loss. However patient desaturated to 88% today with ambulation on room air and therefore qualifies for oxygen. * I will get an echo to evaluate cardiac function as I do not understand why he would have hypoxia with the small segmental emboli especially as his only right- sided. * I stressed the opinion of pulmonology informally. Patient will benefit from outpatient age-appropriate screening workup. * I will hold off on sending screening for enzyme deficiency as patient already received a dose of Lovenox and in the acute state of an embolism, results will not be very valid. * Patient will likely need lifelong anticoagulation in light of 2 PE's and family history of coagulopathy. * 2. Hypothyroidism: on PO armour thyroid 30mg daily 3. DVT prophylaxis: on xarelto Code status: Full code This note was generated with [employer] dictation software. It may contain incorrect words, spelling, and punctuation that were not noted in checking the note before signing. Code Visit OBSV E&M: 82173 Subsequent observation care L3
--- NOTE | 2017-12-16 20:35 | NURSING ---
Report given to SHYANN Machado. She will resume care of patient at this time.
--- NOTE | 2017-12-16 21:09 | NURSING ---
this RN taking over primary care of pt, received report from SHYANN Medina.
[2017-12-17 03:41] VITALS: BP 115/76; PULSE 68; RESP 16; TEMP 36.6; O2SAT 92
[2017-12-17 04:07] VITALS: PULSE 71
[2017-12-17] MEDS: Thyroid 15 MG Tablet 30 MG PO (06:33)
[2017-12-17] MEDS: Rivaroxaban 15 MG Tablet PO (08:37)
[2017-12-17 09:41] VITALS: BP 126/90; PULSE 70; RESP 16; TEMP 36.8; O2SAT 94
[2017-12-17 10:22] VITALS: O2SAT 95
[2017-12-17 11:04] VITALS: PULSE 95
--- NOTE | 2017-12-17 11:29 | DCINST_ITS ---
- Discharge Diagnoses Current Active Problems: PE You will use the following diet at home:: No restrictions, Regular Your food should be the consistency of: Regular Your liquids should be the consistency of: Regular/Thin Discharge Activity: Return to Normal Activity Weight Bearing Status: Weight bearing as tolerated Call your doctor if you observe: Shortness of breath, Dizziness, Chest pain Allergies/Adverse Reactions: Allergies acetaminophen [From Percocet] Allergy (Verified 12/15/17 17:12) Other PASS OUT oxycodone [From Percocet] Allergy (Verified 12/15/17 17:12) Other PASS OUT Iodinated Contrast- Oral and IV Dye [CT] Adverse Reaction (Verified 12/15/17 17: 12) Nausea Medications to take at Discharge Thyroid,Pork [[place] Thyroid] 30 mg PO DAILY 12/16/17 Rivaroxaban [Xarelto] 15 mg PO BIDCM #42 tab 12/17/17 Rivaroxaban [Xarelto] 20 mg PO DAILY #30 tab 12/17/17 The following prescriptions were given: Rivaroxaban [Xarelto] 20 mg PO DAILY #30 tab Rivaroxaban [Xarelto] 15 mg PO BIDCM #42 tab Primary Care Physician: Danilo Oviedo DO [Primary Care Provider] - Please follow up with your Primary Care Physician in: one week Test Results: Test results from this visit will be discussed in further detail at your follow- up appointment, if applicable. Proposed Discharge Date: 12/17/17
--- NOTE | 2017-12-17 11:29 | PCM.DC.SUM ---
Discharge Date and Diagnosis Date of Admission: 12/15/17 Date of Discharge: 12/17/17 - Primary Discharge Diagnosis Acute pulmonary embolism - Secondary Discharge Diagnosis Chronic Problems Postviral (asthenic) syndrome (Chronic) Pulmonary emboli (Chronic) Hospital Course and Treatment Imaging Results: Impressions Chest CTA 12/15/17 17:50 IMPRESSION: Pulmonary emboli within subsegmental pulmonary arteries within the right lower lobe. Atherosclerosis. N.B. : The above information has been verbally conveyed by Tamara Swanson MD to Jeanna Pichardo, Covering Physician, on 12/15/2017 20:27:29 (ET). Electronically Signed: Tamara Swanson MD at 20:27 EDT Tel , Service support , Chest X-Ray 12/15/17 18:05 IMPRESSION: No acute cardiopulmonary process. Electronically Signed: Tamara Swanson MD at 19:13 EDT Tel , Service support , Diagnostic Data Chest CTA 12/15/17 17:50 IMPRESSION: Pulmonary emboli within subsegmental pulmonary arteries within the right lower lobe. Atherosclerosis. N.B. : The above information has been verbally conveyed by Tamara Swanson MD to Jeanna Pichardo, Covering Physician, on 12/15/2017 20:27:29 (ET). Electronically Signed: Tamara Swanson MD at 20:27 EDT Tel , Service support , Chest X-Ray 12/15/17 18:05 IMPRESSION: No acute cardiopulmonary process. Electronically Signed: Tamara Swanson MD at 19:13 EDT Tel , Service support , Laboratory Tests 12/15/17 12/15/17 12/15/17 18:30 18:30 18:30 WBC 9.1 RBC 5.48 Hgb 16.4 Hct 48.2 MCV 88.0 MCH 29.9 MCHC 34.0 RDW 13.0 RDW Differential 41.9 Plt Count 319 MPV 10.1 Immature Gran % (Auto) 0.400 Neut % (Auto) 69.4 Lymph % (Auto) 15.3 L [place] % (Auto) 12.6 H Eos % (Auto) 1.7 Baso % (Auto) 0.6 Absolute Neuts (auto) 6.3 Absolute Lymphs (auto) 1.39 Total Counted Not Reportable Sodium 137 Potassium 3.9 Chloride 103 Carbon Dioxide 28.0 Anion Gap 6 BUN 12 Creatinine 1.12 Estim Creat Clear Calc 68.85 Est GFR (MDRD) Af Amer 87 Est GFR (MDRD) Non-Af 72 BUN/Creatinine Ratio 10.7 Glucose 86 Lactic Acid 1.3 Calcium 9.2 Troponin I < 0.015 Operations: None Procedures: 2-D Echocardiogram Summary of Care Provided: The patient is a 57 year old M with a history of pulmonary embolism 2013. He was admitted on 12/15/2017 with complaint of shortness of breath as well as myalgias and fevers. He had recently had a [address] to [place] and developed subsequent symptoms upon returning. In the emergency room, he had a CT angiogram which revealed subsegmental pulmonary emboli in the right lobe. He was given a one-time dose of Lovenox and then admitted. He had had pulmonary embolism in 2016 which was thought to be due to prolonged immobilization after patient had been in bed for a while. His father has a history of coagulopathy and is on lifelong anticoagulation after multiple pulmonary emboli. Patient remained stable. However on 12/16/2017 he was noted to desaturate to 88% with ambulation on room air. A 2D echo was done to assess right heart function which showed normal left ventricular size with EF of 50% and mild segmental systolic dysfunction with some hypokinesia of the left ventricle. There was a mildly dilated right ventricle with normal systolic function and a normal left atrium and right atrium. Mild mitral valve, tricuspid valve, aortic valve and pulmonic valve insufficiency RVSP and pulmonary artery pressure could not be assessed on account of technically difficult study. Patient's hypoxia resolved and on day of discharge 12/17/2017, with ambulation patient did not desaturate and was saturating around 95 and 96% on room air. Case was informally discussed with pulmonology. Patient has not had any age-appropriate screening and has never had a colonoscopy; he doesnt have a history of smoking and didnt have any weight loss or chronic cough or any pointers towards a malignancy. Decision was made to start patient on anticoagulation with Xarelto 50 mg twice daily for 21 days with stop date of 01/06/2018 and then to start p.o. Xarelto 20 mg daily from 01/07/2018. Patient was counseled that he would likely need to be on lifelong anticoagulation in light of family history of colopathy and having had to pulmonary embolism, albeit slightly provoked. Hypercoagulability screen was not done o/a of patient acutely having a PE and having received lovenox, which would make results inaccurate. He is to follow-up with his primary care doctor for age-appropriate screening. Patient seen and examined prior to discharge. He had no complaints and felt well he wanted to go home. He denied any fever or chills, any cough or chest pain, any shortness of breath, any belly pain, any diarrhea vomiting. Review of systems was otherwise negative. Home medications were reviewed and reconciled. o/e: [] Vital Signs Vital Signs Temp Pulse Resp BP Pulse Ox 12/17/17 11:04 95 12/17/17 10:22 95 12/17/17 09:41 98.2 F 70 16 126/90 H 94 12/17/17 04:07 71 12/17/17 03:41 97.9 F 68 16 115/76 92 General: Alert, Oriented x3, Cooperative, No apparent distress HEENT: Atraumatic, PERRLA, EOMI, Normocephalic Oral: Moist Mucosa Neck: Supple, No JVD, Negative Carotid Bruits Lungs: Clear to auscultation, Normal air movement, No rhonchi, No wheeze, No rales Cardiovascular: Regular rate, Regular Rhythm, Normal S1, Normal S2, No murmurs Abdomen: Bowel Sounds Present, Soft, Non Tender, Non-Distended, No Hepato-splenomegaly Extremities: No clubbing, No cyanosis, No edema, Capillary Refill Less than 3 Seconds Skin: No rashes, No breakdown Musculoskeletal: No Tenderness to Palpation of Joints or Extremities Lymphatic: No Cervical, Supraclavicular, or Inguinal Adenopathy Neurological: Cranial nerves II-XII grossly intact, Motor Exam 5/5 strength throughout Psych/Mental Status: Normal Affect, Appropriate, Alert and oriented to time, place, person, mood and affect PLan as stated above Discharge Activity: Return to Normal Activity Weight Bearing Status: Weight bearing as tolerated Call your doctor if you observe: Shortness of breath, Dizziness, Chest pain Home Medications: Medications to take at Discharge Thyroid,Pork [[place] Thyroid] 30 mg PO DAILY 12/16/17 Rivaroxaban [Xarelto] 15 mg PO BIDCM #42 tab 12/17/17 Rivaroxaban [Xarelto] 20 mg PO DAILY #30 tab 12/17/17 Following Prescrptions Were Given to Patient: Rivaroxaban [Xarelto] 20 mg PO DAILY #30 tab Rivaroxaban [Xarelto] 15 mg PO BIDCM #42 tab Primary Care Physician: Danilo Oviedo DO [Primary Care Provider] - Please follow up with your Primary Care Physician in: one week Disposition: Home Minutes spent on discharge:: 40 Patient Condition:: Stable Medical Necessity - Tobacco Use Smoking Status: Never smoker Tobacco Use: Non-smoker Meaningful Use Info Meaningful Use Diagnoses (Choose all that apply): None applicable Code Visit Inpatient E&M: 03566 Disch Hosp
--- NOTE | 2017-12-17 11:36 | CASEMGMT ---
According to Demetrio BOOTHE, pt does not qualify for home oxygen at this time. Call to [facility] retail pharmacy and per May, pt has no co-pay for Xarelto at this time. Pt is awaiting discharge. Brennen BOOTHE CM
== END 2017-12-17 11:29 | disposition home or self-care (01) ==
LOC: ED 18:00 → PCU 21:12
PROVIDERS: Emergency Provider Emergency Medicine; Family Provider Student in an Organized Health Care Education/Training Program; PCP Student in an Organized Health Care Education/Training Program; Visit Provider Student in an Organized Health Care Education/Training Program
DX: I26.99 Other pulmonary embolism without acute cor pulmonale (principal); Z86.718 Personal history of other venous thrombosis and embolism; Z86.711 Personal history of pulmonary embolism; Z79.899 Other long term (current) drug therapy; E03.9 Hypothyroidism, unspecified; Z87.891 Personal history of nicotine dependence
CPT/HCPCS: 71045; 71275; 80048; 83605; 84484; 85025; 87040; 93005; 93306; 93970; 96361; 96372; 96374; 96375; 97802; 99218; 99282; J7030; Q9957; Q9967; A4216; C8929; G0378; J2405

== ENCOUNTER 2018-08-26 05:41 | Day surgery (SDC) | payer MEDICAID, SELFPAY ==
--- NOTE | 2018-08-25 14:56 | PCM.HP.BLA ---
History and Physical Date of Admission: 08/26/18 HISTORY AND PHYSICAL ? Jd Trevino 1960 ? ? REFERRING PHYSICIAN: ??Danilo Oviedo DO ? CHIEF COMPLAINT: ??Consult (Consult worsening umbilical hernia) ? HPI: Jd is a 58 year old male with a complaint of a bulge ?and discomfort ?in his?umbilical region. ?He has known of this hernia for multiple years. ?The patient notes discomfort in this area with lifting. ?The symptoms have increased, over the past few months. ??He had a previous umbilical incision for her laparoscopic appendectomy performed by Dr. Danielle. ? The patient notes no symptoms of bowel obstruction and denies nausea or vomiting. The patient was seen by his?primary care physician ?who felt the patient has a hernia. ?Jd was referred for evaluation and treatment. ? The patient presented to [facility] in December, with complaint of chest discomfort not quite feeling right. ?He underwent a CT angiogram of the chest which demonstrated subsegmental right and left pulmonary emboli. ?Bilateral lower extremity duplexes demonstrated no DVTs. ?Apparently there was no obvious source. ? The patient is being seen by me today at the request of Dr. Danilo Oviedo, DO for my opinion and advice regarding umbilical hernia now symptomatic with a recent pulmonary embolism from an unknown source. ? ? PAST?MEDICAL?HISTORY PAST MEDICAL HISTORY Diagnosis Date ? Acute appendicitis without mention of peritonitis 03/08/13 ? Deep vein thrombosis (DVT) (HCC) ? ? bilateral ? Impaired fasting glucose 08/2015 ? Migraine headache ? ? Pulmonary embolism (HCC) ? ? Vitamin D deficiency 08/2015 ? PAST?SURGICAL?HISTORY PAST SURGICAL HISTORY Procedure Laterality Date ? LAPAROSCOPY, SURGICAL, APPENDECTOMY ? 03/08/13 ? ? ? CURRENT?MEDICATIONS ? Current Outpatient Medications: ibuprofen (MOTRIN) 800 mg tablet TAKE ONE TABLET BY MOUTH EVERY 8 HOURS NEEDED FOR PAIN. TAKE WITH FOOD. rivaroxaban (XARELTO) 20 mg tablet Take 1 tablet by mouth daily with dinner. sildenafil (VIAGRA) 100 mg tablet GENERIC, Take 1 tablets prior to intercourse as needed. vitamin b complex (B COMPLETE) tab Take 1 tablet by mouth once daily. multivitamin tablet Take 1 tablet by mouth once daily. Cholecalciferol, Vitamin D3, 2,000 unit cap Take 1 capsule by mouth once daily. THERA 400 mcg TAKE ONE TABLET BY MOUTH ONCE DAILY [place] 500 mg cap Take 1 capsule by mouth daily with dinner. Pyridoxine HCL-Melatonin 3-10 mg tab Take 1 tablet by mouth daily at bedtime. Tadalafil (CIALIS) 20 mg tab(s) Take 1 tablet by mouth once daily. As needed, up to 1 tablet a day for erectile symptoms ARMOUR THYROID 30 mg tablet Take 1 tablet by mouth once daily. Lactobacillus acidophilus (ACIDOPHILUS) cap Take 2 capsules by mouth twice daily. acetaminophen (TYLENOL) 325 mg tablet Take 2 tablets by mouth every 6 hours as needed for Pain. buPROPion XL (WELLBUTRIN XL) 300 mg 24 hr tablet Take 1 tablet by mouth once daily. lansoprazole (PREVACID) 30 mg capsule Take 1 capsule by mouth once daily. (Patient not taking: Reported on 05/19/2018 ) sucralfate (CARAFATE) 1 gram tablet Take 1 tablet by mouth before meals and at bedtime. As needed for abdominal pain (Patient not taking: Reported on 05/19/2018 ) promethazine (PHENERGAN) 12.5 mg tablet Take 1 tablet by mouth every 6 hours as needed for Nausea/Vomiting. (Patient not taking: Reported on 05/19/2018 ) VITAMIN D-3 2,000 unit cap TAKE ONE CAPSULE BY MOUTH ONCE DAILY amitriptyline (ELAVIL) 25 mg tablet TAKE ONE TABLET BY MOUTH ONCE DAILY AT BEDTIME docusate sodium (STOOL SOFTENER) 100 mg capsule Take 1 capsule by mouth twice daily. Constipation (Patient not taking: Reported on 05/19/2018 ) ? No current facility-administered medications for this visit. ? ALLERGIES: Patient has no known allergies. ? PERSONAL HISTORY: SOCIAL?HISTORY Social History ??Socioeconomic History ?Marital status: ?Spouse name: Not on file ?Number of children: Not on file ?Years of education: Not on file ?Highest education level: Not on file ??Social Needs ?Financial resource strain: Not on file ?Food insecurity - worry: Not on file ?Food insecurity - inability: Not on file ?Transportation needs - medical: Not on file ?Transportation needs - non-medical: Not on file ??Occupational History ?Not on file ??Tobacco Use ?Smoking status: Never Smoker ?Smokeless tobacco: Never Used ??Substance and Sexual Activity ?Alcohol use: No ?Drug use: No ?Sexual activity: Yes ?Partners: Female ??Other Topics ?Concerns: ?Not on file ??Social History Narrative ?Not on file ?? ? FAMILY HISTORY: FAMILY?HISTORY FAMILY HISTORY Problem Relation Age of Onset ? other (liver failure) Mother ? ? other (heart attack) Father ? ? ? REVIEW OF SYMPTOMS: ??The review of systems data was entered by the nurse and reviewed by me ? Nursing Notes: Bhupendra Buchanan LPN ?07/30/2018 ?1:16 PM ?Signed REVIEW OF SYSTEMS: ?General:???The patient denies fatigue, denies weight loss, denies weight gain, denies feeling hot, and denies feelings of cold. ?Eyes: ?The patient denies glaucoma, denies eye injury/surgery, wears glasses or contacts. ?Ear/Nose/Throat: ?The patient denies allergies, denies hayfever, denies ear infections, and denies bloody noses. ?Cardiovascular: ?The patient denies chest pain, denies heart disease, denies high blood pressure,denies cardiac stent, denies prior heart attack, denies irregular heart beat, denies high cholesterol, ?denies poor circulation, denies heart failure, other cardiac issues, denies claudication, denies cold feet, denies peripheral arterial stent. ?Respiratory: ?The patient denies tuberculosis, denies pneumonia, denies frequent cough, NOTES pulmonary embolism, denies shortness of breath, and denies coughing up blood. ?Gastrointestinal: ?The patient denies difficulty swallowing, denies acid reflux, denies ulcers, denies vomiting, denies jaundice/hepatitis, denies gallbladder problems, denies black or tarry stools, denies hemorrhoids, denies bleeding from rectum, denies diverticulitis, denies constipation, denies diarrhea, denies loss of stool control, and NOTES hernias. ?Kidney/Bladder: ?The patient denies kidney stones, denies urine infections, and denies bloody urine. ?Skin: ?The patient denies a history of skin cancer, denies bleeding/changing moles, and denies a history of skin rash. ?Neurologic: ?The patient denies a history of epilepsy/convulsions, NOTES headaches, denies head/spinal injuries, and denies stroke/TIA. ?Psychiatric: ?The patient denies psychiatric medications, denies depression, and denies voices, denies substance abuse. ?Endocrine: ?The patient NOTES thyroid disorders, denies diabetes, and denies hormonal problems. ?Hematologic: ?The patient denies a history of bruising, denies bleeding, and denies anemia, NOTES blood clots. ?Infections: ?The patient denies a history of measles and mumps, denies rheumatic fever, and denies sexually transmitted diseases. ?Musculoskeletal: ?The patient denies back pain/injury, denies back problems, denies sciatica, denies knee/foot trouble, denies arthritis, or denies gout. ? ? When was patient's last Mammogram screening? N/A ? ?Last Colonoscopy: ?Unknown ? Bhupendra Buchanan LPN ? PHYSICAL EXAMINATION: ? General: ?The patient is 58 year old male, well nourished, well hydrated in no acute distress. ?The patient is oriented to time, place, and person. ? VITALS: Blood pressure 136/82, pulse 104, temperature 36.8 ?C (98.3 ?F), height 170.2 cm (5' 7), weight 101.3 kg (223 lb 6.4 oz), SpO2 93 %.?Body mass index is 34.99 kg/m?.? ? HEENT: ?Normal cephalic, ataumatic, pupils are equally round, sclera are anicteric, mucous membranes are moist, oropharynx is clear. ?Neck has no masses, asymmetry or lymphadenopathy. ?Thyroid is unremarkable. ? Respiratory: ?Clear to auscultation and percussion. ?Normal respiratory excursion and pattern. ? Cardiac: ?Examination is regular rate and rhythm. ? Abdominal exam: ?Soft, nontender, ?with no palpable masses. ?No hepatosplenomegaly. ?A small nonreducible and tender umbilical hernia, no right or left inguinal hernias are noted ? Rectal exam: ?exam deferred ? Extremities: ?no clubbing, cyanosis or edema. ?No adenopathy. ? Other: ? ? LABORATORY VALUES: As Noted ? RADIOLOGIC STUDIES: ?As Noted ? Assessment ? IMPRESSION: incisional/umbilical hernia, recent history of PE on Xarelto ? PLAN: ? I plan to contact Dr. Oviedo and Dr. Gary concerning the timing for stopping the Xarelto and whether the patient requires a hypercoagulability workup prior to umbilical hernia repair. ?If he needs to be maintained on Xarelto and he is having persisting increasing symptoms, does he need bridge therapy while holding the Xarelto. ? ?My plan is to perform a laparoscopic incisional hernia repair with mesh. ?The planned surgical procedure was discussed extensively with the patient. ?The risks, benefits, anticipated outcomes and possible complications were mentioned. ?Jd bravoands that all hernia repair surgery has a chance of recurrence and/or chronic post operative pain. ?My staff has also explained the procedure in understandable terms and the patient was given the option to take printed material concerning the planned procedure. ?The patient had the opportunity to ask questions concerning the planned procedure. ?The patient freely consents to the planned procedure. ? ? ? My findings have been communicated to Dr. Darcy Oviedo DO via shared medical record. ?This note will be forwarded to Dr. Danilo Oviedo DO. ? Diagnoses: (K42.9) Umbilical hernia without obstruction or gangrene ?(primary encounter diagnosis) (Z86.718) History of DVT (deep vein thrombosis) (Z86.711) History of pulmonary embolism ? Anticipated CPT Code: laparoscopic incisional hernia repair - incarcerated - 22154-240 ? Anticipated Anesthetic: General ? Patient weight: ?Blood pressure 136/82, pulse 104, temperature 36.8 ?C (98.3 ?F), height 170.2 cm (5' 7), weight 101.3 kg (223 lb 6.4 oz), SpO2 93 %.?BMI: ?Body mass index is 34.99 kg/m?. ? Planned antibiotic: Ancef 2gm IVPB director of marketing operations to OR ? SCDs needed - Yes ? Return to Clinic: The patient is instructed to follow-up with me to schedule surgery after decision made for anticoagulation with history of PE. ? Luis A Bernal MD
[2018-08-26] VITALS (14 sets, daily range): BP systolic 113–159; BP diastolic 72–106; PULSE 59–89; RESP 14–18; TEMP 36.2–37; O2SAT 88–97; BMI 33.7
--- NOTE | 2018-08-26 | HERN_PTH ---
PATIENT: TYSON ABREU [place] [facility] [id number] AGE/SX: 58/M ROOM: RE08/26/[address]: Dr. Luis A Bernal MD : 1960 BED: DIS: 08/26/2018 SPEC #: [id number] RECD: 08/26/18 14:22 STATUS: KEVIN RESisi #: [id number] FANNIE: 08/26/18 00:[address]: Luis A Bernal DEPT: SURGICAL PATHOLOGY RECD BY: Mason Key ENTERED: 08/26/18 14:22 SP TYPE: Hernia OTHR DR: Dr. Danilo Oviedo DO Tissues: HERNIA Procedures: Surgery Specimen Level II HEADER OPERATION: Laparoscopic incisional hernia repair PRE-OP DIAGNOSIS: Incisional / umbilical hernia TISSUE SUBMITTED: Hernia sac MICROSCOPIC DIAGNOSIS Hernia sac: Pieces of fibroadipose and fibroconnective tissue, consistent with hernia sac. SJ:sage 08/27/18 MICROSCOPIC DESCRIPTION Slides are reviewed. GROSS DESCRIPTION Received in fixative is one container labeled with the patient's name and designated hernia sac. The specimen consists of three variable sized fragments of soft tissue that in aggregate measure 5.5 x 4 x 1.5 cm. No mass lesion is identified. Call Center Support Consultant sections are submitted in one cassette. / SJ:rg 08/26/18 TC:5 CPT: 02357
[2018-08-26 06:42] LABS: Thyroid Stim Hormone (TSH) 5.31 uIU/mL (0.358-3.74)
[2018-08-26] MEDS: Cefazolin 2 GM in 0.9% Normal Saline 100 ML IV (07:18)
[2018-08-26] MEDS: Bupivacaine 0.5% PF 10 ML VIAL ×2 (08:43)
--- NOTE | 2018-08-26 08:50 | DCINST_ITS ---
Discharge Diet: Light diet - advance as tolerated Discharge Activity: Return to Normal Activity, May Drive - when you are no longer taking narcotic pain medications., May Shower - with the bandage in place 1-2 days after surgery. Lifting Restrictions: 20 pounds for 8 weeks. Additional Activity Instructions:: Climbing stairs is fine, walking is encouraged. Sitting in bed may be uncomfortable. Sitting up using your lateral muscles (sitting up sideways) is usually more comfortable. Do not drive, work heavy equipment of sign legal documents for 24 hours. If your hernia repair was an ingunial repair, you may have scrotal swelling, an ice pack and/or athletic support can provide more comfort. Pain medications may cause nausea, you should typically eat light foods as you take your pain medications. Pain medications may also cause constipation. If you have difficulty with this, discuss with your doctor. Call your doctor if your incision/area has: Continuous Slow Oozing, Sudden Increased Bleeding, Increased Pain/ Swelling, Increased Redness, Foul Smelling Discharge Call your doctor if you observe: Fever of 101 or Higher Suture Line Care: Avoid Pulling/Pushing, Avoid Pinching/Bending Additional Dressing/Incision Instructions:: Leave the operative bandage on for 2-3 days. When you remove the bandage, leave the steri-strips on place until your follow up appointment or they fall off. Allergies/Adverse Reactions: Allergies oxycodone [From Percocet] Allergy (Verified 08/24/18 10:37) Other PASS OUT Iodinated Contrast- Oral and IV Dye [CT] Adverse Reaction (Verified 08/24/18 10:37) Nausea Medications to take at Discharge Thyroid,Pork [[place] Thyroid] 30 mg PO DAILY 12/16/17 Cyanocobalamin (Vitamin B-12) [Vitamin B-12] 1,000 mcg PO DAILY 08/24/18 Multivitamin [Daily Multiple Vitamin] 1 each PO DAILY 08/24/18 Rivaroxaban [Xarelto] 15 mg PO DAILY 08/24/18 Primary Care Physician: Danilo Oviedo DO [Primary Care Provider] - Test Results: Test results from this visit will be discussed in further detail at your follow- up appointment, if applicable. Please Follow Up With: Luis A Bernal MD - [phone] When: Plan to have a follow up appointment in 7 days. Call to schedule.
--- NOTE | 2018-08-26 08:50 | PCM.OPRPT ---
Report of Operation Date of Procedure: 08/26/18 Pre-Operative Diagnosis: incarcerated incisional hernia Post-Operative Diagnosis: incarcerated incisional hernia Surgery/Procedure Performed:: laparoscopic incarcerated incisional hernia repair Description of Surgical Findings:: as above - defect 1.5cm prevention rn: Mable Ray Type of Anesthesia:: General Anesthesiologist: Damon Contreras - ASA2 Specimen's removed: hernia sac/omentum Estimated Blood Loss (mL): 50 Fluids Replaced: 1400 Description of Procedure: The patient was brought to the operating suite. Sign in was performed verifying patient, site, procedure, position, and DVT prophylaxis with SCDs. Patient received 2 g Ancef antibiotic prophylaxis. Following induction of general anesthetic, the patient?s abdomen was prepped and draped in the usual fashion. Timeout was performed verifying patient, site, position. Local anesthetic was injected . A transverse linear incision was made through the previous hernia repair site andand dissection carried down at the umbilicus to the hernia defect. The hernia sac was identified and the hernia sac was opened . 2 stay sutures were placed and the Perez trocar was inserted and secured with the stay sutures. 3- 5mm parts were placed in the far left lateral position There was a small amount of omentum adherent within the hernia sac. this was able to partially reduced but then the hernia sac and some omentum were dissected and sent as specimen. This was dissected off the hernia sac and then dissected off the fascial defect margin . . Once there was circumferential freeing of the small bowel and omentum , the hernia sac was dissected completely free from the subcutaneous fat down to the level of the fascial defect . Dissection of the hernia sac at the level the umbilicus and then excess surrounding preperitoneal fat was dissected to allow flat placement of the intra-abdominal mesh. The falciform ligament was also divided to prevent tenting. A ventralex sac & [place] mesh 8cm placed intra-abdominally. A Prolene suture was placed through the lower aspect of the mesh brought up with a Granee needle to just below the umbilical fascial defect. Prolene sutures were placed transfixing the fascia at 12 , 6 , 3 and 9:00 using a GraNee needle . The mesh was then tacked using a secure strap tacker around the outer rim of the mesh and then in multiple locations in the inner mesh Subcutaneous fat was closed with interrupted 3-0 Vicryl suture. Skin was closed with a running and inturrepted 4-0 Monocryl subcuticular sutures. Steri-Strips and bandages were applied. The patient was brought to recovery room in stable condition. Grafts/Implants Used: Ventralex large sac & [place] - 8.4cm [id number] Lot [id number] Exp 12/07/2019 - Admit VTE Documentation VTE Present on Admission: No VTE Mechan Device Prophylaxis: SCD's VTE Pharm Prophylaxis ordered?: No
--- NOTE | 2018-08-26 15:25 | SUR.PHASEII ---
[facility] [place] [facility] PT TO BE DRESSED AND READY BY 1500. PT WAS DRESSED AND READY FOR D/C @1500. NO FAMILY PRESENT. WENT TO THE FRONT ENTRANCE TWICE LOOKING FOR FAMILY. CALLED PT'S PHONE NUMBER AT [phone]. PT'S DAUGHTER REPORTED THAT THEY HAVE NOT LEFT [facility] YET AND WILL CALL WHEN CLOSE TO HOSPITAL FOR PT TO BE AT FRONT DOOR WAITING. NOTIFIED PT OF THIS UPDATE.
== END 2018-08-26 15:51 | disposition home or self-care (01) ==
LOC: SDC 05:43 → AC 05:45
PROVIDERS: Anesthesiology; Family Provider Student in an Organized Health Care Education/Training Program; PCP Student in an Organized Health Care Education/Training Program; Referring Provider Surgery; Visit Provider Surgery
PROC: 0WQF4ZZ Repair Abdominal Wall, Percutaneous Endoscopic Approach (ICD-10-PCS; CPT 49655; principal; 2018-08-26 07:10)
DX: K43.0 Incisional hernia with obstruction, without gangrene (principal); K42.0 Umbilical hernia with obstruction, without gangrene; E06.9 Thyroiditis, unspecified; E55.9 Vitamin D deficiency, unspecified; Z86.718 Personal history of other venous thrombosis and embolism; Z86.711 Personal history of pulmonary embolism; Z79.01 Long term (current) use of anticoagulants
CPT/HCPCS: 49655; 36415; 84443; 88302; J7120; C1781; J2405

== ENCOUNTER 2019-09-22 08:33 | Day surgery (SDC) | payer MEDICAID, SELFPAY ==
[2019-07-20 08:29] VITALS: BMI 33.7
[2019-09-22 09:09] VITALS: BP 131/82; PULSE 67; RESP 16; TEMP 36.2; O2SAT 98; BMI 34.7
[2019-09-22] MEDS: Lactated Ringers 1,000 ML 100 ML IV (09:16)
--- NOTE | 2019-09-22 10:09 | HP.PCM_ITS ---
History and Physical Date of Admission: 09/22/19 [facility] [address] [place], [place] [id number] OFFICE VISIT Date of Service: 07/20/19 MR#: [id number] Acct: [id number] Name: JD ABREU Rep #: [id number] : 1960 Provider: Jd hernandez MD Age/Sex: 59/M Location: [facility] Status: Signed Intake Vital Signs 07/20/19 Height 5 ft 7 in 07/20/19 Weight: 225 lb 07/20/19 BMI 35.2 07/20/19 BP 120/81 H 07/20/19 Blood Pressure Location Rt brachial 07/20/19 Position Sitting 07/20/19 Respiration 18 07/20/19 Pulse 76 07/20/19 Pulse Source Monitor 07/20/19 Temp 98.2 F 07/20/19 Temp Source Oral 07/20/19 Pulse Oximetry (%) 91 07/20/19 Oxygen Delivery Method room air Intake Visit Reasons: Gerd & Change in bowel habits Chief Complaint: C-Scope consult/ LLQ abdominal pain Director Of Capital Giving Required: No Accompanied by: Is patient in pain?: No Allergies oxycodone [From Percocet] Allergy (Verified 07/20/19 08:27) Other Iodinated Contrast Media [CT] Adverse Reaction (Verified 07/20/19 08:27) Nausea Medications Thyroid,Pork [[place] Thyroid] 30 mg PO DAILY 12/16/17 [History Confirmed 07/20/19] Cyanocobalamin (Vitamin B-12) [Vitamin B-12] 1,000 mcg PO DAILY 08/24/18 [History Confirmed 07/20/19] Multivitamin [Daily Multiple Vitamin] 1 ea PO DAILY 08/24/18 [History Confirmed 07/20/19] Rivaroxaban [Xarelto] 15 mg PO DAILY 08/24/18 [History Confirmed 07/20/19] [facility] Medical History Abdominal pain (Acute) Arthritis (Acute) Belching (Acute) Surgical History History of appendectomy (Acute) history umbilical herniorrhaphy (Acute) Family History Mother Diabetes Social History (Updated 07/21/19 @ 08:[address] Jd Danielle MD) Smoking Status: Never smoker alcohol intake: never substance use type: does not use HPI HPI HPI: JD ABREU, is a 59 M who presents to the office today for HPI HPI HPI: JD ABREU, is a 59 M who presents to the office today for Screening colonoscopy. Patient has never had a colonoscopy. He has been complaining of some dull left lower quadrant abdominal pain has been relatively consistent sometimes it can be worse with eating too much popcorn but has not noticed any blood. Patient has had an umbilical hernia repair about 1 year or better. ROS General General: No weight change, appetite, fatigue, colon cancer, breast cancer or weakness HEENT HEENT: No difficulty swallowing, eye injury, eye surgery, swollen glands or hoarseness Endo Endocrine: No thyroid disease, diabetes mellitus, thyroid cancer, Hair loss, heat intolerance or cold intolerance Skin Skin: No rash or changing moles Breast Breast: No left breast lump, right breast lump, nipple discharge, breast pain, abnormal mammogram, abnormal US or breast enlargement Musc Musculoskeletal: Yes arthritis; no back problems, rheumatoid arthritis, gout or joint pain Cardio Cardiovascular: No murmur, pacemaker, heart disease, atrial fibrillation, high blood pressure, heart attack, heart stent, palpitations, shortness of breat with exertion or chest pain Psych Psychiatric: No depression, anxiety or hearing voices Resp Respiratory: No shortness of breath, No sleep apnea, No cough, No COPD, No asthma, No emphysema, No wheezing Gastro Gastrointestinal: Yes abdominal pain, No nausea or vomiting, No diarrhea, No constipation, No blood in stool, Yes acid reflux, No hemorrhoids, No ulcers, No gallbladder problem, No black,tarry stools Rj Hematologic: No blood thinners, No blood disorders, No bleeding, No anemia, No blood clots Neuro Neurologic: No system reviewed and no additional complaints, except as docu, No as per HPI, No abnormal walking, No abnormal hearing, No abnormal movements, No abnormal speech, No behavioral changes, No burning sensations, No confusion, No seizure-like activity, No unsteadiness, No dizziness, No localized weakness, No frequent falls, No headache(s), No lack of coordination, No loss of vision, No memory loss, No numbness, No other visual disturbances, No radiating pain, No restless legs, No sensory deficit, No fainting, No tingling, No tremor(s), No weakness, No other Exam Const General: no acute distress, well developed, well hydrated Orientation: oriented to person, oriented to place, oriented to time [facility] Head: normocephalic, atraumatic Ears: external ears normal Mouth: moist mucous membranes Eyes Sclera: sclerae normal Pupils: normal by confrontation Neck Neck: no lymphadenopathy noted Neck mass: No Thyroid: thyroid normal, symmetrical Chest Chest palpation & inspection: normal inspection of the chest Breast Palpation: No nipple discharge Resp Effort & Inspection: normal respiratory effort Auscultation: clear to auscultation bilaterally Percussion: percussion normal Cardio Rate: regular rate Rhythm: regular rhythm Heart Sounds: no murmurs GI Palpation: soft, no hepatosplenomegaly, no masses, nontender Rectal Exam: other Other: Rectal exam deferred. Extrem General: normal to inspection, no clubbing, cyanosis or edema Assessment & Plan Problems 1. Encounter for screening colonoscopy Z12.11 Plan I have discussed the above with the patient. I have offered the patient colonoscopy for evaluation. I have explained the risks/benefits of the procedure and described the procedure. I have discussed the risks with the patient, including but not limited to: infection, bleeding, perforation of the GI tract requiring emergency surgery, inability to complete the procedure, injury to any internal organs, complications of anesthesia, etc. - the patient understands and agrees to proceed. I have answered all the patient's questions to the patient's satisfaction and the patient has no further questions. The patient has been given instructions for the colon cleansing preparation. The patient has no upper abdominal symptoms. I do not think that he needs to have an EGD at this time. Orders Orders: Colonoscopy 07/20/19 Coding Level of Care Code Off vis,new,level 3 Diagnoses Encounter for screening colonoscopy Z12.11 07/21/19 0829 <Electronically signed by Jd patton MD> Date _ Jd Lolis Munoz Signature: Date (if applicable) CC: Danilo Kerr, DO ~ Insert H&P no changes
--- NOTE | 2019-09-22 10:40 | OP.COLON_ITS ---
Patient Name: Jd Trevino Procedure Date: 09/22/2019 10:19 AM Date of : 1960 Age: 59 Procedure: Colonoscopy Indications: Screening for colorectal malignant neoplasm Providers: Jd Danielle MD Referring MD: Danilo Oviedo Medicines: See the Anesthesia note for documentation of the administered medications Patient Profile: This is a 59 year old male. Refer to note in patient chart for documentation of history and physical. Last Colonoscopy: none. The patient's first colonoscopy is today. Complications: No immediate complications. Procedure: Pre-Anesthesia Assessment: - Prior to the procedure, a History and Physical was performed, and patient medications and allergies were reviewed. The patient's tolerance of previous anesthesia was also reviewed. The risks and benefits of the procedure and the sedation options and risks were discussed with the patient. All questions were answered, and informed consent was obtained. Prior Anticoagulants: The patient has taken no previous anticoagulant or antiplatelet agents. ASA Grade Assessment: II - A patient with mild systemic disease. After reviewing the risks and benefits, the patient was deemed in satisfactory condition to undergo the procedure. After I obtained informed consent, the scope was passed under direct vision. Throughout the procedure, the patient's blood pressure, pulse, and oxygen saturations were monitored continuously. The adult colonoscope was introduced through the anus and advanced to 2 cm into the ileum. The colonoscopy was performed without difficulty. The patient tolerated the procedure well. The quality of the bowel preparation was good. Scope In: 10:26:42 AM Scope Withdrawal Time 0 hours 7 minutes 31 seconds Scope Out: 10:36:54 AM Total Procedure Duration Time 0 hours 10 minutes 12 seconds Findings: The terminal ileum appeared normal. A few small-mouthed diverticula were found in the sigmoid colon and descending colon. No biopsies or other specimens were collected for this exam. Non-bleeding internal hemorrhoids were found during retroflexion. The hemorrhoids were mild and small. The exam was otherwise without abnormality. Impression: - The examined portion of the ileum was normal. - Diverticulosis in the sigmoid colon and in the descending colon. No specimens collected. - Non-bleeding internal hemorrhoids. - The examination was otherwise normal. Recommendation: - Discharge patient to home. - Resume previous diet. - Continue present medications. - Repeat colonoscopy in 10 years for screening purposes. - Return to primary care physician in 1 week. Procedure Code(s): --- Professional --- 47375, Colonoscopy, flexible; diagnostic, including collection of specimen(s) by brushing or washing, when performed (separate procedure) Diagnosis Code(s): --- Professional --- Z12.11, Encounter for screening for malignant neoplasm of colon K64.8, Other hemorrhoids K57.30, Diverticulosis of large intestine without perforation or abscess without bleeding CPT copyright 2017 [employer]. All rights reserved. The codes documented in this report are preliminary and upon field sales executive review may be revised to meet current compliance requirements. MD Jd Foley MD 09/22/2019 10:40:44 AM This report has been signed electronically. Number of Addenda: 0 Note Initiated On: 09/22/2019 10:19 AM
--- NOTE | 2019-09-22 10:41 | OP.CCLET_ITS ---
09/22/2019 Danilo Oviedo [address] [phone] Re : Colonoscopy procedure for Jd Trevino Dear Dr. Oviedo This procedure was performed on Sunday, September 22, 2019. My impressions and recommendations are as follows: Impressions : - The examined portion of the ileum was normal. - Diverticulosis in the sigmoid colon and in the descending colon. No specimens collected. - Non-bleeding internal hemorrhoids. - The examination was otherwise normal. Recommendations : - Discharge patient to home. - Resume previous diet. - Continue present medications. - Repeat colonoscopy in 10 years for screening purposes. - Return to primary care physician in 1 week. My findings are described in the full procedure note, which is enclosed. If I can be of further assistance, please feel free to contact me at Doctor phone number(s): , Fax: [phone], Work: . Sincerely, MD Jd Foley MD 09/22/2019 10:40:44 AM This report has been signed electronically.
[2019-09-22 10:43] VITALS: BP 114/86; BP 131/82; PULSE 69; RESP 16; TEMP 36.9; O2SAT 94
[2019-09-22 10:50] VITALS: BP 118/88; BP 131/82; PULSE 64; RESP 17; O2SAT 94
[2019-09-22 10:55] VITALS: BP 129/91; BP 131/82; PULSE 59; RESP 16; O2SAT 94
[2019-09-22 11:11] VITALS: BP 131/82; BP 135/92; PULSE 65; RESP 16; TEMP 36.4; O2SAT 97
[2019-09-22 11:59] VITALS: BP 131/82
== END 2019-09-22 12:00 | disposition home or self-care (01) ==
LOC: EN 08:34 → AC 08:34
PROVIDERS: PCP Student in an Organized Health Care Education/Training Program; Referring Provider Student in an Organized Health Care Education/Training Program; Visit Provider Surgery
PROC: 0DJD8ZZ Inspection of Lower Intestinal Tract, Via Natural or Artificial Opening Endoscopic (ICD-10-PCS; CPT 45378; principal; 2019-09-22 09:40)
DX: Z12.11 Encounter for screening for malignant neoplasm of colon (principal); K57.30 Diverticulosis of large intestine without perforation or abscess without bleeding; K64.8 Other hemorrhoids
CPT/HCPCS: 45378; J7120